=== PATIENT | female | born 1990 | race African-American/Black ===

== ENCOUNTER 2016-10-15 09:16 | Emergency (ER) | payer BC, MEDICAID ==
[~2016-10-15] VITALS: Ht 170.2 cm; Wt 90.7 kg
[2016-10-15 09:31] VITALS: BP 155/104
[2016-10-15] MEDS ORDERED: ALBUTEROL SULF 2.5 MG/0.5ML(0.5%) NEB SOLN NEB ONE (10:45)
[2016-10-15] MEDS ORDERED: methylPREDNISolone SOD SUCC 125 MG/2 ML VL IM ONE (10:45)
[2016-10-15] MEDS ORDERED: IPRATROPIUM BROM 0.5 MG/2.5ML INH SOL NEB ONE (10:45)
== END 2016-10-15 11:10 | disposition home or self-care (01) ==
LOC: ER 09:16
DX: J45.901 Unspecified asthma with (acute) exacerbation (principal); J20.9 Acute bronchitis, unspecified
CPT/HCPCS: 94640; 96372; 99283; J2930

== ENCOUNTER 2023-06-16 09:52 | Emergency (ER) | payer MEDICAID ==
[~2023-06-16] VITALS: Ht 170.2 cm; Wt 99.0 kg
[2023-06-16 10:34] LABS: Basophils # (auto) 0.1 10 ^3/uL (0-0.2); Basophils % (auto) 0.8 % (0.0-2.0); Eosinophils # (auto) 0.1 10 ^3/uL (0-0.8); Eosinophils % (auto) 1.4 % (0.0-7.0); Hematocrit 38.7 % (36.0-46.0); Hemoglobin 12.6 g/dL (12.2-16.2); Lymphocytes # (auto) 2.8 10 ^3/uL (0.4-5.4); Lymphocytes % (auto) 37.4 % (10.0-50.0); Mean Corpuscular Hemoglobin 27.6 pg (28.0-32.0); Mean Corpuscular Hgb Conc. 32.4 g/dL (32.0-36.0); Mean Corpuscular Volume 85.1 fL (80.0-100.0); Monocytes # (auto) 0.4 10 ^3/uL (0-1.3); Monocytes % (auto) 5.2 % (0.0-12.0); Neutrophils # (auto) 4.1 10 ^3/uL (1.6-8.6); Neutrophils % (auto) 55.2 % (37.0-80.0); Nucleated Red Blood Cells % 0.1 %; Red Blood Cells 4.55 10^6/uL (4.0-5.20); Red Cell Distribution Width 14.9 % (11.8-14.3); White Blood Cell 7.4 10^3/uL (4.4-10.8)
[2023-06-16 10:51] LABS: Alanine Aminotransferase 17 U/L (7-40); Albumin 4.6 g/dL (3.2-4.8); Alkaline Phosphatase 63 U/L (46-116); Anion Gap 6 (5-15); Aspartate Aminotransferase 17 U/L (13-40); BUN/Creatinine Ratio 11.7 (10.0-20.0); Bilirubin, Total 0.5 mg/dL (0.2-1.0); Blood Urea Nitrogen 9 mg/dL (9-23); Calcium 9.6 mg/dL (8.7-10.4); Carbon Dioxide 27 mmol/L (20-30); Chloride 104 mmol/L (98-107); Glucose 96 mg/dL (74-106); Magnesium 2.1 mg/dL (1.6-2.6); Potassium 4.5 mmol/L (3.5-5.1); Sodium 137 mmol/L (136-145); Total Protein 7.3 g/dL (5.7-8.2)
[2023-06-16 10:55] LABS: INR 1.04 (0.9-1.15); Prothrombin Time 10.9 sec (9.3-11.8)
[2023-06-16 16:44] VITALS: BP 136/83; PULSE 93; RESP 18; O2SAT 96
== END 2023-06-16 16:43 | disposition home or self-care (01) ==
LOC: ER 09:52
DX: R20.2 Paresthesia of skin (principal); I10 Essential (primary) hypertension; J45.909 Unspecified asthma, uncomplicated
CPT/HCPCS: 36415; 70450; 70551; 80053; 83735; 83880; 84484; 85025; 85610; 85730; 93005